=== PATIENT | female | born 1965 | race Caucasian/White ===

== ENCOUNTER → 2020-03-26 | Outpatient (CLI) | payer MEDICARE ==
[~2020-03-26] MED LIST: ALENDRONATE SOD10 MG PO; ASPIRIN EC81 MG PO; ASPIRIN325 MG PO; ATORVASTATIN CA20 MG PO; CLINDAMYCIN HC300 MG PO; CLOPIDOGREL75 MG PO; FISH OIL 1,0001 EACH PO; GABAPENTIN300 MG PO; GLIPIZIDE ER10 MG PO; LANTUS SOL100 UNIT/1 SQ; LOPRESSOR 25 MG25 MG PO; MIACALCIN NASA3.7 ML; NORCO 10-325 T1 EACH PO; PROBIOTIC1 EAC1 PO; PROTONIX 40 MG40 M1 PO; RENVELA800 MG PO; TRULICITY1.5 MG/0.5 SQ; VITAMIN C500 MG PO; VITAMIN D21250 MCG PO; VITAMIN D31250 MCG PO
== END ==
LOC: KOH-I 13:34
DX: Z47.89 Encounter for other orthopedic aftercare (principal); M19.071 Primary osteoarthritis, right ankle and foot; M85.871 Other specified disorders of bone density and structure, right ankle and foot; Z98.890 Other specified postprocedural states
CPT/HCPCS: 73610; 73630

== ENCOUNTER → 2020-04-20 | Outpatient (CLI) | payer MEDICARE | LOC: KOH-I 08:53 | DX: Z47.89 Encounter for other orthopedic aftercare (principal); Z98.1 Arthrodesis status; Z96.7 Presence of other bone and tendon implants; M19.071 Primary osteoarthritis, right ankle and foot | CPT/HCPCS: 73630 ==

== ENCOUNTER → 2020-05-11 | Outpatient (CLI) | payer MEDICARE | LOC: KOH-I 08:51 | DX: Z47.89 Encounter for other orthopedic aftercare (principal) | CPT/HCPCS: 73630 ==

== ENCOUNTER → 2020-06-22 | Outpatient (CLI) | payer MEDICARE | LOC: KOH-I 15:18 | DX: A52.16 Charcot's arthropathy (tabetic) (principal) | CPT/HCPCS: 73630 ==

== ENCOUNTER → 2020-08-17 | Outpatient (CLI) | payer MEDICARE | LOC: KOH-I 10:07 | DX: M14.671 Charcot's joint, right ankle and foot (principal); M79.89 Other specified soft tissue disorders | CPT/HCPCS: 73610; 73630 ==

== ENCOUNTER → 2020-11-17 | Outpatient (CLI) | payer MEDICARE | LOC: KOH-I 14:54 | DX: M79.671 Pain in right foot (principal) | CPT/HCPCS: 73630 ==

== ENCOUNTER 2021-09-27 16:32 | Inpatient (IN) | payer MEDICARE ==
[~2021-09-27] VITALS: Ht 154.9 cm; Wt 91.6 kg
[~2021-09-27 16:32] MED LIST changes: -ASPIRIN325 MG PO; -PROBIOTIC1 EAC1 PO; +PROBIOTIC1 EACH PO
[2021-09-27 18:37] LABS: HEMOGLOBIN 10.7 gm/dl (12.3-15.3); RED BLOOD COUNT 3.66 M/UL (4.00-5.10); WHITE BLOOD COUNT 6.4 K/UL (4.5-11.0)
[2021-09-30 03:32] LABS: HEMOGLOBIN 10.7 gm/dl (12.3-15.3); RED BLOOD COUNT 3.74 M/UL (4.00-5.10); WHITE BLOOD COUNT 7.8 K/UL (4.5-11.0)
[2021-10-01 01:51] LABS: HEMOGLOBIN 9.8 gm/dl (12.3-15.3); WHITE BLOOD COUNT 6.5 K/UL (4.5-11.0)
[2021-10-01 01:54] LABS: RED BLOOD COUNT 3.36 M/UL (4.00-5.10)
[2021-10-02 03:56] LABS: HEMOGLOBIN 9.9 gm/dl (12.3-15.3); RED BLOOD COUNT 3.43 M/UL (4.00-5.10); WHITE BLOOD COUNT 7.7 K/UL (4.5-11.0)
--- NOTE | 2021-10-02 15:41 | NUR ---
PATIENT WAS TAKEN TO 2ND FLOOR FOR DIALYSIS AT APPROXIMATELY 0930 THIS DATE. PER DIALYSIS NURSE AT COMPLETION, NO FLUID WAS REMOVED FROM THE PATIENT TODAY. STATED THAT DR. HOOD ORDERED A 1L BOLUS OF NORMAL SALINE 0.9%. PATIENT WAS RETURNED TO HER ROOM. NO COMPLICATIONS REPORTED. PATIENT STATED THAT SHE WAS FEELING "BETTER NOW THEN EARLIER".
[2021-10-03 05:24] LABS: HEMOGLOBIN 9.9 gm/dl (12.3-15.3); RED BLOOD COUNT 3.34 M/UL (4.00-5.10); WHITE BLOOD COUNT 9.1 K/UL (4.5-11.0)
[2021-10-05 03:40] LABS: HEMOGLOBIN 9.3 gm/dl (12.3-15.3); RED BLOOD COUNT 3.23 M/UL (4.00-5.10); WHITE BLOOD COUNT 8.3 K/UL (4.5-11.0)
[2021-10-05 04:26] LABS: BUN/CREATININE RATIO 6 (0-10)
--- NOTE | 2021-10-05 08:17 | NUR ---
patient refused to take the other medications d/t dialysis day today. she stated she will take it later when she gets back from dialysis
[2021-10-06 02:55] LABS: HEMOGLOBIN 9.6 gm/dl (12.3-15.3); RED BLOOD COUNT 3.32 M/UL (4.00-5.10); WHITE BLOOD COUNT 7.6 K/UL (4.5-11.0)
[2021-10-07 03:52] LABS: HEMOGLOBIN 9.8 gm/dl (12.3-15.3); RED BLOOD COUNT 3.44 M/UL (4.00-5.10); WHITE BLOOD COUNT 7.1 K/UL (4.5-11.0)
--- NOTE | 2021-10-07 19:40 | NUR ---
Reported to dr. vidal patient low b/p and received order
--- NOTE | 2021-10-07 21:16 | NUR ---
page dr. sparrow to report patient low b/p
--- NOTE | 2021-10-08 08:12 | NUR ---
TELE CALLED TO NOTIFY THAT PATIENT HAD 2.3 SECOND PAUSE. NURSE WAS IN ROOM AT THE TIME AND PATIENT WAS CHECKED ON. TELE SENT STRIP AND IT WAS PLACED IN THE CHART FOR THE MD.
[2021-10-10 06:05] LABS: HEMOGLOBIN 8.5 gm/dl (12.3-15.3); RED BLOOD COUNT 2.93 M/UL (4.00-5.10); WHITE BLOOD COUNT 8.8 K/UL (4.5-11.0)
[2021-10-12 06:20] LABS: HEMOGLOBIN 8.3 gm/dl (12.3-15.3); RED BLOOD COUNT 2.84 M/UL (4.00-5.10)
[2021-10-12 06:24] LABS: WHITE BLOOD COUNT 6.5 K/UL (4.5-11.0)
[2021-10-13 06:32] LABS: HEMOGLOBIN 8.5 gm/dl (12.3-15.3); RED BLOOD COUNT 2.92 M/UL (4.00-5.10)
[2021-10-14 06:42] LABS: HEMOGLOBIN 8.2 gm/dl (12.3-15.3); RED BLOOD COUNT 2.8 M/UL (4.00-5.10); WHITE BLOOD COUNT 7.1 K/UL (4.5-11.0)
[2021-10-14] MEDS ORDERED: FERROUS SULFAT325 M2 PO (12:32)
[2021-10-14] MEDS ORDERED: MULTAQ 400 MG400 MG PO (12:32)
[2021-10-14] MEDS ORDERED: ELIQUIS 5 MG TAB5 MG PO (12:32)
[2021-10-14] MEDS ORDERED: HUMALOG 10100 UNITS/ SC (12:36)
[2021-10-15 07:07] LABS: HEMOGLOBIN 7.7 gm/dl (12.3-15.3); RED BLOOD COUNT 2.64 M/UL (4.00-5.10); WHITE BLOOD COUNT 7.2 K/UL (4.5-11.0)
[2021-10-15] MEDS ORDERED: GABAPENTIN300 MG PO (09:18)
--- NOTE | 2021-10-15 13:21 | NUR ---
PT ARRIVED TO THE UNIT SCUD APPLIED TO NON OPERATIVE LEG IS EVERY HR WHILE AWAKE NEURO CHECKS INTACT POLAR ICE ON AND PT VERBALIZES UNDERSTNADING OF THERAPY
[2021-10-16 06:35] LABS: HEMOGLOBIN 7.4 gm/dl (12.3-15.3); RED BLOOD COUNT 2.53 M/UL (4.00-5.10); WHITE BLOOD COUNT 7.1 K/UL (4.5-11.0)
[2021-10-16] MEDS ORDERED: ELIQUIS 5 MG TAB5 MG PO (09:12)
[2021-10-16] MEDS ORDERED: MULTAQ 400 MG400 MG PO (09:12)
--- NOTE | 2021-10-16 14:40 | NUR ---
Pt F/S was rechecked after snack given and it was 114. No issues noted she is up in her W/C going to therapy.
[2021-10-17 06:03] LABS: HEMOGLOBIN 7.4 gm/dl (12.3-15.3); RED BLOOD COUNT 2.58 M/UL (4.00-5.10); WHITE BLOOD COUNT 7.2 K/UL (4.5-11.0)
[2021-10-18 06:23] LABS: HEMOGLOBIN 8.6 gm/dl (12.3-15.3); WHITE BLOOD COUNT 7.7 K/UL (4.5-11.0)
[2021-10-18 06:39] LABS: RED BLOOD COUNT 2.92 M/UL (4.00-5.10)
== END 2021-10-18 14:59 | disposition home health service (06) | DRG 40 ==
LOC: M/S 16:32
PROVIDERS: Internal Medicine; Internal Medicine Nephrology; ADMIT Internal Medicine
PROC: B24BZZZ Ultrasonography of Heart with Aorta (ICD-10-PCS; 2021-09-28)
PROC: 5A1D70Z Performance of Urinary Filtration, Intermittent, Less than 6 Hours Per Day (ICD-10-PCS; 2021-09-28)
PROC: 0Y6H0Z1 Detachment at Right Lower Leg, High, Open Approach (ICD-10-PCS; 2021-09-29)
PROC: 5A1D70Z Performance of Urinary Filtration, Intermittent, Less than 6 Hours Per Day (ICD-10-PCS; 2021-09-30)
PROC: 5A1D70Z Performance of Urinary Filtration, Intermittent, Less than 6 Hours Per Day (ICD-10-PCS; 2021-10-02)
PROC: 5A1D70Z Performance of Urinary Filtration, Intermittent, Less than 6 Hours Per Day (ICD-10-PCS; 2021-10-12)
PROC: 5A1D70Z Performance of Urinary Filtration, Intermittent, Less than 6 Hours Per Day (ICD-10-PCS; 2021-10-16)
PROC: 30233N1 Transfusion of Nonautologous Red Blood Cells into Peripheral Vein, Percutaneous Approach (ICD-10-PCS; principal; 2021-10-17)
DX: E11.610 Type 2 diabetes mellitus with diabetic neuropathic arthropathy (principal); N18.6 End stage renal disease; M86.8X7 Other osteomyelitis, ankle and foot; E87.1 Hypo-osmolality and hyponatremia; Z20.822 Contact with and (suspected) exposure to COVID-19; I12.0 Hypertensive chronic kidney disease with stage 5 chronic kidney disease or end stage renal disease; J96.11 Chronic respiratory failure with hypoxia; E11.22 Type 2 diabetes mellitus with diabetic chronic kidney disease; E11.69 Type 2 diabetes mellitus with other specified complication; E78.5 Hyperlipidemia, unspecified; E11.621 Type 2 diabetes mellitus with foot ulcer; I48.0 Paroxysmal atrial fibrillation; K21.9 Gastro-esophageal reflux disease without esophagitis; E87.5 Hyperkalemia; D86.0 Sarcoidosis of lung; E11.649 Type 2 diabetes mellitus with hypoglycemia without coma; D63.1 Anemia in chronic kidney disease; I25.10 Atherosclerotic heart disease of native coronary artery without angina pectoris; I08.1 Rheumatic disorders of both mitral and tricuspid valves; Z79.01 Long term (current) use of anticoagulants; Z79.82 Long term (current) use of aspirin; Z99.2 Dependence on renal dialysis; Z79.4 Long term (current) use of insulin; Z91.81 History of falling; I25.2 Old myocardial infarction; Z99.81 Dependence on supplemental oxygen; Z98.891 History of uterine scar from previous surgery; Z90.49 Acquired absence of other specified parts of digestive tract; Z83.6 Family history of other diseases of the respiratory system; Z80.1 Family history of malignant neoplasm of trachea, bronchus and lung; Z95.5 Presence of coronary angioplasty implant and graft
CPT/HCPCS: ECHO; 36415; 36430; 71045; 73610; 73630; 80048; 80053; 80202; 82728; 82962; 83036; 83540; 83550; 83605; 83735; 84100; 84439; 84443; 85025; 85027; 85610; 85652; 85730; 86140; 86850; 86900; 86901; 86920; 87040; 90935; 90937; 93005; 93306; 94760; 97110; 97110-GP-CQ; 97116; 97116-GP-CQ; 97161; 97165; 97530; 97530-GP-CQ; G0257; J1100; J1644; J1885; J2001; J2185; J2270; J2405; J2550; J2704; J2710; J3010; J3370; J7040; J7050; J7070; P9016; Q5106; U0002

== ENCOUNTER → 2021-10-21 | Outpatient (CLI) | payer MEDICARE ==
[~2021-10-21] MED LIST changes: +ELIQUIS 5 MG TAB5 MG PO; +FERROUS SULFAT325 M2 PO; +HUMALOG 10100 UNITS/ SC; +MULTAQ 400 MG400 MG PO
[2021-10-21 10:09] LABS: HEMOGLOBIN 9.5 gm/dl (12.3-15.3); RED BLOOD COUNT 3.22 M/UL (4.00-5.10); WHITE BLOOD COUNT 9.2 K/UL (4.5-11.0)
== END ==
LOC: LAB 09:39
PROVIDERS: Internal Medicine
DX: N18.6 End stage renal disease (principal)
CPT/HCPCS: 36415; 80048; 85025